=== PATIENT | male | born 1945 | race Caucasian/White ===

== ENCOUNTER 2020-05-19 09:32 | Inpatient (IN) | payer OTHER, MEDICARE ==
[~2020-05-19] VITALS: Ht 182.9 cm; Wt 84.0 kg
[~2020-05-19 09:32] MED LIST: ASPIRIN325 MG PO; LIPITOR80 MG PO; NIFEDIPINE30 MG PO; PRILOSEC20 MG/CAP PO; PROCARDIA10 MG PO; PROTONIX40 MG PO
--- NOTE | 2020-05-19 09:34 | NUR ---
PT TO ROOM VIA WC
--- NOTE | 2020-05-19 09:45 | NUR ---
PT ASSESSED. CHANGED TO GOWN. MONITORS IN PLACE. PT AO X 3. COMPLAINS OF CHEST PAIN WORSE WITH MOVEMENT. ABDOMINAL DISTENSION PRESENT PER PATIENT, HISTORY OF HERNIA. PT DENIES NAUSEA, DIAPHORESIS OR PAIN RADIATION.
[2020-05-19 10:08] LABS: HEMATOCRIT 39.9 % (39.0-50.0); IMMATURE GRANULOCYTES 0.4 % (0.0-5.0); MEAN CORPUSCULAR HGB 29.9 pG CALC (26.0-32.0); MEAN CORPUSCULAR HGB CONC 30.1 g/dL CAL (32.0-36.0); NEUT# 4.88 thou/uL (1.82-7.42); RED BLOOD COUNT 4.01 mill/uL (4.70-6.10); RED CELL DISTRI WIDTH 13.3 % (11.5-15.5)
[2020-05-19 10:10] LABS: URINE BLOOD DIPSTICK NEGATIVE (NEGATIVE); URINE GLUCOSE - DIPSTICK NEGATIVE (NEGATIVE); URINE KETONE TRACE mg/dL (NEGATIVE); URINE LEUK ESTERASE NEGATIVE (NEGATIVE); URINE NITRITE - DIPSTICK NEGATIVE (Negative); URINE PROTEIN - DIPSTICK 30 mg/dL (NEG-TRACE); URINE SPECIFIC GRAVITY >=1.030
[2020-05-19 10:14] LABS: MEAN CELL VOLUME 99.5 fL CALC (80.0-100.0); URINE BILIRUBIN - DIPSTICK MODERATE (NEGATIVE); URINE COLOR DK. YELLOW; URINE EPITHELIAL CELLS FEW EPI/hpf (0-FEW); URINE MUCUS MODERATE hpf (NONE-FEW)
[2020-05-19 10:21] LABS: ALBUMIN 3.7 g/dL (3.2-5.0); TOTAL PROTEIN 7.5 g/dL (6.3-8.2)
[2020-05-19] MEDS ORDERED: ASPIRIN81 MG PO (10:23)
[2020-05-19] MEDS ORDERED: PANTOPRAZOLE SO40 M1 PO (10:23)
[2020-05-19] MEDS ORDERED: CLOPIDOGREL75 MG PO (10:24)
[2020-05-19] MEDS ORDERED: B121000 MCG PO (10:24)
[2020-05-19] MEDS ORDERED: FOLIC ACID1 MG PO (10:25)
[2020-05-19] MEDS ORDERED: ATORVASTATIN CA80 MG PO (10:25)
[2020-05-19] MEDS ORDERED: METOPROL TAR25 MG PO (10:26)
[2020-05-19] MEDS ORDERED: POT CHLORIDE10 ME5 PO (10:26)
[2020-05-19 10:27] LABS: BILIRUBIN, TOTAL 1.3 mg/dL (0.0-1.4); CREATININE 2.1 mg/dL (0.7-1.3)
[2020-05-19] MEDS ORDERED: FERR SULFATE325 MG PO (10:27)
--- NOTE | 2020-05-19 10:45 | NUR ---
PT RESTING ON STRETCHER AWAITING RESULTS
--- NOTE | 2020-05-19 11:26 | NUR ---
PT MEDICATED AND IV FLUIDS STARTED
[2020-05-19 11:37] LABS: C-REACTIVE PROTEIN 6.2 mg/dL (0-0.9)
--- NOTE | 2020-05-19 12:35 | NUR ---
REPORT CALLED TO JACKSON RAWLS. MED SURG
--- NOTE | 2020-05-19 12:40 | NUR ---
PT TRANSPORTED VIA STRETCHER TELEMETRY IN PLACE TO [facility]
--- NOTE | 2020-05-19 12:50 | NUR ---
PT RECEIEVED FROM THE ED. REPORT FROM FREDY RAWLS. PT ARRIVED ON A STRETCH BUT SELF AMBULATED TO THE BED WITH NO DIFFICULTIES. V/S ASSESSED, PT INSTRUCTED TO CALL SYSTEM, LIGHTS BED AND IV. URINAL BEDSIDE. INSTRUCCTED TO CALL PRIOR TO AMBULATING. PT ASSESSMENT COMPLETE. PT ON 2 LITERS OF O2 NC. PT ON NL @100 PER HR. PT GIVE MEAL. PT VEBALIZED UNDERSTANDING OF INSTRUCTIONS. CALL BLANKENSHIP WITHIN REACH. WILL CONTINUE TO OBSERVE.
[2020-05-19 13:00] VITALS: BP 134/65
--- NOTE | 2020-05-19 13:34 | NUR ---
PT RECEIEVED FROM THE ED. REPORT FROM FREDY RAWLS. PT ARRIVED ON A STRETCH BUT SELF AMBULATED TO THE BED WITH NO DIFFICULTIES. V/S ASSESSED, PT INSTRUCTED TO CASLL SYSTEM, LIGHTS BED AND IV. URINAL BEDSIDE. INSTRUCCTED TO CALL PRIOR TO AMBULATING. PT ASSESSMENT COMPLETE. PT ON 2 LITERS OF O2 NC. PT ON NL @100 PER HR. PT GIVE MEAL. PT VEBALIZED UNDERSTANDING OF INSTRUCTIONS. CALL BLANKENSHIP WITHIN REACH. WILL CONTINUE TO OBSERVE.
[2020-05-19 15:48] VITALS: BP 127/62
--- NOTE | 2020-05-19 18:26 | NUR ---
PTS , JANET GUERRERO [phone] WOULD LIKE RN TO REPORT ANY CHANGE IN CONDITION.
[2020-05-19 19:20] VITALS: BP 135/67
[2020-05-20] VITALS (7 sets, daily range): BP systolic 115–155; BP diastolic 53–75
[2020-05-20 05:44] LABS: HEMATOCRIT 38.5 % (39.0-50.0); HEMOGLOBIN 11.4 g/dl (14.0-18.0); IMMATURE GRANULOCYTES 0.4 % (0.0-5.0); MEAN CORPUSCULAR HGB 29.3 pG CALC (26.0-32.0); MEAN CORPUSCULAR HGB CONC 29.6 g/dL CAL (32.0-36.0); NEUT# 4.66 thou/uL (1.82-7.42); RED BLOOD COUNT 3.89 mill/uL (4.70-6.10); RED CELL DISTRI WIDTH 13.4 % (11.5-15.5)
[2020-05-20 06:18] LABS: ALBUMIN 3.1 g/dL (3.2-5.0); BILIRUBIN, TOTAL 1.2 mg/dL (0.0-1.4); CREATININE 1.7 mg/dL (0.7-1.3); MAGNESIUM 1.7 mg/dL (1.6-2.3); POTASSIUM 4.6 mmol/l (3.5-5.1); TOTAL PROTEIN 6.2 g/dL (6.3-8.2)
[2020-05-20 06:20] LABS: CHOLESTEROL HDL RATIO 3.7 (<4.4 (CALC))
--- NOTE | 2020-05-20 06:46 | NUR ---
PT IN BED WITH EYES CLOSED. VERY PLEASSANT THROUGHOUT THE NIGH. PT IS ABLE TO VERBALIZE NEEDS. COMPLAINED OF PAIN AT 5 ON SCALE OF 1-10 WITH 10 GREATEST TO ABDOMEN. ABDOMEN IS DISTENDED AND FIRM TO TOUCH AND TENDER TO TOUCH. BOWEL SOUNDS ARE HYPOACTIVE IN ALL QUADRANTS. PT STATED THAT HE HAD BM ON 05/18/20. PT IS NPO AT THIS TIME FOR ULTRASOUND OF ABDOMEN. PT AWARE OF PROCEDURE TO BE DONE THIS AM. PT RESPIRATIONS ARE EVEN AND NON LABORED AND DENIES RESPIRATORY DISTRESS. IV SITE IS INTACT AND NO S/S OF INFITRATION/INFECTION. PT HAS NS 0.9% RUNNING AT 100ML/HR AND TOLERATING WELL. DECLINED PAIN MANAGEMNT FOR ABDOMINAL DISCOMFORT. cALL LIGHT IS WITHIN REACH AND BED IN LOWEST POSITION.
--- NOTE | 2020-05-20 07:15 | NUR ---
REPORT RECEIVED FROM CURLY PARISI.
--- NOTE | 2020-05-20 07:50 | NUR ---
PT RESTING IN SEMI FOWLERS POSITION,A&O X3;VS OBTAINED AND ASSESSMENT COMPLETED;PT DENIES ABDOMINAL PAIN BUT REPORTS "DISCOMFORT", PAIN SCALE AND REPORTING EDUCATED;RESPIRATIONS SHALLOW ON O2 @ 2L VIA, PT TAKES OFF O2 AT TIMES, NON-PRODUCTIVE COUGH;ABDOMEN DISTENDED/FIRM ON PALPATION AND HYPOACTIVE IN ALL 4 QUADRANTS;STRONG PEDAL PULSES;SKIN INTACT;TELE MONITORING IN PLACE;#20G TO LAC INFUSING NS @ 75ML/HR,SITE APPEARS HEALTHY;IT WAS NOTICIED ON MORNING LABS THAT PT GLUCOSE WAS 48, PT MEDICATED WITH D10 AT THIS TIME PER ORDER;PT REMAINS IN AIR/CONTACT PRECAUTIONS UNTIL NASAL PCR SWAB RESULTS;PT DENIES ANY ADDITIONAL NEEDS AT THIS TIME AND IS ENCOURAGED TO CALL FOR ASSISTANCE IF NEEDED;FALL PRECAUTIONS IN PLACE WITH BED IN THE LOWEST POSITION AND CALL LIGHT IN REACH;WILL CONTINUE TO MONITOR
--- NOTE | 2020-05-20 07:52 | NUR ---
LUIS COLLAZO: REVEIEWING PT LABS THIS AM ANO NOTED BLOOD SUGAR 48. PT IS ABLE TO VERBALIZE NEEDS. DR. AGARWAL CALLED AND NEW ORDER FOR D50 X 1. FAXED ORDER TO [facility] AND AWAITNG MEDICATION TO BE INSERTED FOR ADMINISTRATION. PT STATED THAT HE WOULD LIKE TO SPEAK WITH MD REGARDING GOING HOME. EXPLAINED TO PT REGARDING UPCOMING EXAM AND AWAITING RESULTS AND HE STATED HE UNDERSTOOD. RESPIRATION EVEN AND NON LABORED AND SHALLOW BREATHING NOTED AT TIMES. MILD NONPRODUCTIVE COUGH NOTED THIS AM. HOB ELEVATED. CALL LIGHT WITHIN REACH. WILL CONTINUE TO OBSERVE
--- NOTE | 2020-05-20 09:00 | NUR ---
GLUCOSE RE-CHECK 74, NOTIFIED AND NEW ORDERS RECEIVED.
--- NOTE | 2020-05-20 09:05 | NUR ---
PT TRANSPORTED TO [facility] IN STABLE CONDITION VIA WHEELCHAIR ACCOMPANIED BY WRITTER.
--- NOTE | 2020-05-20 09:35 | NUR ---
PT RETURNED BACK TO MED/SURG ROOM 290 IN STABLE CONDITION VIA WHEELCHAIR.
--- NOTE | 2020-05-20 12:15 | NUR ---
PT RESTING AT BEDSIDE EATING LUNCH;RESPIRATIONS EVEN AND UNLABORED ON RA;PT DENIES ANY CURRENT PAIN OR DISCOMFORTS;TELE MONITORING IN PLACE;IV SITE PATENT INFUSING D5 NS @ 75ML/HR WITH EASE;ASSESSMENT REMAINS UNCHANGED AT THIS TIME;ENCOURAGED TO CALL FOR ASSISTANCE IF NEEDED;FALL PRECAUTIONS IN PLACE WITH CALL LIGHT IN REACH;WILL CONTINUE TO MONITOR
--- NOTE | 2020-05-20 16:40 | NUR ---
PT RESTING IN SEMI FOWLERS POSITION;RESPIRATIONS EVEN AND UNLABORED ON RA;PT DENIES ANY CURRENT PAIN OR DISCOMFORTS;TELE MONITORING IN PLACE;IV SITE PATENT INFUSING FLUIDS PER ORDER;SHOWER SET UP PROVIDED AND LINENS CHANGED AT THIS TIME;PT DENIES ANY ADDITIONAL NEEDS AND IS ENCOURAGED TO CALL FOR ASSISTANCE IF NEEDED;CALL LIGHT IN REACH;WILL CONTINUE TO MONITOR
--- NOTE | 2020-05-20 19:10 | NUR ---
REPORT FROM DEBBIE CARRERA. PT NOTED RESTING IN BED. NO APPARENT DISTRESS NOTED. IV SITE APPEARS HEALTHY. PT TOLERATING WELL. PT DENIES ANY PAIN OR DISCOMFORT. NO APPARENT RESPIRATORY DISTRESS NOTED.. RADIAL DRILL OPERATOR IN PLACE. DISCUSSED POC. PT VERBALIZED UNDERSTANDING. CALL LIGHT WITHIN REACH. WILL CONTINUE TO MONITOR.
--- NOTE | 2020-05-20 21:31 | NUR ---
PT MEDICATED ORDERED. NO APPARENT DISTRESS NOTED. PT C/O ABD PAIN, MEDICATED WITH PRN APAP AT THIS TIME, PT REFUSING MORPHINE. NO OTHER WANTS OR NEEDS. CALL LIGHT WITHIN REACH. WILL CONTINUE TO MONITOR.
[2020-05-21] VITALS (7 sets, daily range): BP systolic 125–149; BP diastolic 64–70
--- NOTE | 2020-05-21 00:32 | NUR ---
PT RESTING IN BED. NO APPARENT DISTRESS NOTED. O2 VIA NC @ 2L/M. VSS. PT DENIES ANY OTHER WANTS OR NEEDS. PT STATES HE GOT UP TO USE BATHROOM X2. IV SITE APPEARS HEALTHY WITH IVF INFUSING. CALL LIGHT WITHIN REACH. WILL CONTIUE TO MONITOR.
--- NOTE | 2020-05-21 03:55 | NUR ---
PT RESTING IN BED. NO APPARENT DISTRESS NOTED. ASSISTANT UNIT FORESTER IN PLACE. PT DENIES ANY PAIN OR DISCOMFORT AT THIS TIME. VSS. CALL LIGHT WITHIN REACH. WILL CONTINUE TO MONITOR.
--- NOTE | 2020-05-21 07:15 | NUR ---
REPORT RECEIVED FROM DEBI CUELLAR.
--- NOTE | 2020-05-21 08:25 | NUR ---
PT RESTING IN SEMI FOWLERS POSITION,A&O X3;VS OBTAINED AND ASSESSMENT COMPLETED,O2 SATS INITIALLY IN THE LOW 80'S ON RA, OXYGEN APPLIED AT 3L AND O2 SATS JAY TO LOW 90'S;PT HAS BEEN INSTRUCTED MULTIPLE TIMES ABOUT LEAVING OXYGEN ON BUT HAS BEEN NON-COMPLIANT,MD NOTIFIED;RESPIRATIONS SHALLOW ON O2 @ 3L VIA,NON-PRODUCTIVE COUGH NOTED;ABDOMEN DISTENDED/FIRM ON PALPATION AND HYPOACTIVE IN ALL 4 QUADRANTS;STRONG PEDAL PULSES;SKIN INTACT;TELE MONITORING IN PLACE;#22G TO LFA INFUSING D5 NS @ 75ML/HR,SITE APPEARS HEALTHY;PT REPORTS ABDOMINAL PAIN BUT REFUSES THE NEED FOR PAIN MEDICATION,PAIN SCALE AND REPORTING EDUCATED;PT DENIES ANY ADDITIONAL NEEDS AT THIS TIME;PT REMAINS IN AIR/CONTACT PRECAUTIONS DUE TO COVID19 DX;ENCOURAGED TO CALL FOR ASSISTANCE IF NEEDED;FALL PRECAUTIONS IN PLACE WITH CALL LIGHT IN REACH;WILL CONTINUE TO MONITOR
--- NOTE | 2020-05-21 08:30 | NUR ---
AT BEDSIDE DISCUSSING POC.
--- NOTE | 2020-05-21 09:50 | NUR ---
PT TRANSPORTED TO [facility] AT THIS TIME IN STABLE CONDITION VIA WHEELCHAIR ACCOMPANIED BY HERBERTH OLIVER.
--- NOTE | 2020-05-21 10:04 | NUR ---
PT RETURNED TO MED/SURG ROOM 290 IN STABLE CONDITION VIA WHEELCHAIR ACCOMPANIED BY HERBERTH OLIVER.
--- NOTE | 2020-05-21 12:40 | NUR ---
PT RESTING AT BEDSIDE EATING LUNCH;RESPIRATIONS EVEN AND UNLABORED ON O2 @ 3L VIA NC;PT DENIES ANY CURRENT PAIN OR DISCOMFORTS;TELE MONITORING IN PLACE;IV FLUIDS INFUSING WITH EASE;ENCOURAGED TO CALL FOR ASSISTANCE IF NEEDED;CALL LIGHT IN REACH;WILL CONTINUE TO MONITOR
--- NOTE | 2020-05-21 15:25 | NUR ---
PT RESTING IN SEMI FOWLWES POSITION;RESPIRATIONS EVEN AND UNLABORED ON O2 @ 3L VIA NC, O2 SATS @ 100%. OXYGEN DECREASED AT THIS TIME TO 2L VIA NC;PT DENIES ANY CURRENT PAIN OR NEEDS;IV FLUIDS CONTINUE TO INFUSE TO LFA WITH EASE,ABX STARTED AT THIS TIME;TELE MONITORING IN PLACE;PT ENCOURAGED TO CALL FOR ASSISTANCE IF NEEDED;CALL LIGHT IN REACH;WILL CONTINUE TO MONITOR
--- NOTE | 2020-05-21 16:00 | NUR ---
PT O2 SATS 92% ON O2 @ 2L VIA NC, RESPIRATIONS EVEN AND UNLABORED;PT DENIES ANY CURRENT PAIN OR NEEDS;WILL CONTINUE TO MONITOR
--- NOTE | 2020-05-21 19:02 | NUR ---
REPORT FROM DEBBIE CARRERA. PT NOTED RESTING IN BED. NO APPARENT DISTRESS NOTED. IV SITE APPEARS HEALTHY. PT TOLERATING WELL. PT DENIES ANY PAIN OR DISCOMFORT. NO APPARENT RESPIRATORY DISTRESS NOTED. 02 @ 2L/M VIA NC. COMMUNICATIONS SUPERVISOR IN PLACE. DISCUSSED POC. PT VERBALIZED UNDERSTANDING. CALL LIGHT WITHIN REACH. WILL CONTINUE TO MONITOR.
--- NOTE | 2020-05-21 21:25 | NUR ---
PT MEDICATED ORDERED. ASSESSMENT COMPLETE. PT DENIES ANY PAIN OR DISCOMFORT. PT MILDLY AGGITATED AND INSISTANT THAT HE IS GOING HOME TOMORROW, ORDER ENTRY CLERK ATTEMPTED TO EDUCATE AT THIS TIME, PT GOT MORE AGGITATED AND IS NOW REFUSING TO COMMUNICATE WITH ORDER ENTRY CLERK. NO APPARENT DISTRESS NOTED. 02 @ 2L/M VIA MI. CALL LIGHT WITHIN REACH. WILL CONTINUE TO MONITOR.
--- NOTE | 2020-05-21 23:48 | NUR ---
PT FOUND TO HAVE O2 OFF. CURRENT O2 SATS 87% ON RA. NO APPARENT DISTRESS NOTED. O2 REAPPLIED AFTER SEVERAL MINUTES O2 SATS ON UP TO 89-90%. O2 INCREASED TO 3L/M VIA NC AT THIS TIME. PT STILL DISGRUNTLED WITH STAFF. CALL LIGHT WITHIN REACH. WILL CONTINUE TO MONITOR.
[2020-05-22 04:17] VITALS: BP 137/69
--- NOTE | 2020-05-22 04:17 | NUR ---
PT OOB BED DRESSED IN HOME CLOTHES REQUESTING WHEN DOCTOR WILL BE IN TO SEE HIM. DISCUSSED WITH PT THE TIMES PHYSICIAN TYPICALLY MAKE ROUNDS. PT VERBALIZED UNDERSTANDING. O2 VIA NC @ 3L/M SATS CURRENTLY 95%. VSS. PT DENIES ANY PAIN OR DISCOMFORT. CALL LIGHT WITHIN REACH. WILL CONTINUE TO MONITOR.
[2020-05-22 05:47] LABS: HEMATOCRIT 38.5 % (39.0-50.0); HEMOGLOBIN 11.6 g/dl (14.0-18.0); MEAN CELL VOLUME 98.7 fL CALC (80.0-100.0); MEAN CORPUSCULAR HGB 29.7 pG CALC (26.0-32.0); MEAN CORPUSCULAR HGB CONC 30.1 g/dL CAL (32.0-36.0); RED BLOOD COUNT 3.9 mill/uL (4.70-6.10); RED CELL DISTRI WIDTH 13.5 % (11.5-15.5)
[2020-05-22 06:17] LABS: CREATININE 1.5 mg/dL (0.7-1.3); MAGNESIUM 1.7 mg/dL (1.6-2.3); POTASSIUM 3.9 mmol/l (3.5-5.1)
[2020-05-22 09:04] VITALS: BP 133/67
--- NOTE | 2020-05-22 09:04 | NUR ---
PT SITTING IN BED. A&O X3. PT REPORTS THAT HE WANTS TO GO HOME TODAY. PT COOPERATIVE BUT SLIGHTLY AGITATED. PT DENIES ANY PAIN AT THIS TIME. O2 VIA NC @3L IN PLACE. NO OTHER NEEDS AT THIS TIME. ASSESSMENT COMPLETED. ISOLATION PRECAUTIONS IN PLACE. CALL LIGHT IN REACH. CONTINUE TO MONITOR.
[2020-05-22 11:00] VITALS: BP 127/64
--- NOTE | 2020-05-22 11:30 | NUR ---
PT O2 VIA RM @84 %. O2 VIA NC REAPPLIED. O2% 93-94.
--- NOTE | 2020-05-22 13:15 | NUR ---
PT CURRENTLY OFF OF OXYGEN. DENIES ANY SOB. O2 VIA ROOM AIR FLUCTUATING BETWEEN 88-92%. LAST READING PT SUSTAINED AT 89/90%.
[2020-05-22] MEDS ORDERED: VANTIN200 M1 PO (13:25)
[2020-05-22] MEDS ORDERED: ZITHROMAX250 MG PO (13:26)
--- NOTE | 2020-05-22 15:30 | NUR ---
PT AGITATED WANTING TO LEAVE. EXPLAINED TO PT REASONING BEHIND DELAYED D/C. EXPLAINED TO PT THAT DUE TO HIS O2 SATURATION VIA ROOM AIR IT WAS BEST IF HE HAD O2 TO GO HOME WITH. PT VERBALIZED UNDERSTANDING.
[2020-05-22 16:20] VITALS: BP 128/66
--- NOTE | 2020-05-22 17:28 | NUR ---
NO UPDATES ON PTS O2. CALLED [facility], PER [facility] ROOM SERVICE FOOD SERVICE ATTENDANT NO O2 TO BE DELIVERED TO PT DUE TO PT STATING HE WANTED TO [facility]OUGH [facility]. PER ROOM SERVICE FOOD SERVICE ATTENDANT PT ENDED PHONE CALL WHEN ASKED FURTHER ABOUT HIS INSURANCE. NURSING DRAWING TRACER NOTIFIED.
--- NOTE | 2020-05-22 18:05 | NUR ---
PT AGITATED AND INSITING THAT HE WANTS TO GO HOME, THAT HIS IV NEEDED TO BE REMOVED SO HE CAN "GET OUT OF HERE". DELMAR RN NOTIFIED, PER DELMAR CALL PHYSICIAN REFINED SYRUP OPERATOR AND NOTIFY THEM.
--- NOTE | 2020-05-22 18:27 | NUR ---
DR HOOVER NOTIFIED OF PTS DECISION AND AGITATION TOWARDS BEING D/C. PER SNEHA, PRINT PRESCRIPTION SCRIPTS AND HAVE PT SIGN D/C INSTRUCTIONS.
--- NOTE | 2020-05-22 18:50 | NUR ---
PT SIGNED D/C INSTRUCTIONS, REVIEWED D/C INSTRUCTIONS AND IMPORTANCE TO CONTINUE TO MONITOR O2 % AT HOME. EXPLAINED TO PT THAT OUT PT ORDERS FOR REPEAT BLOOD WORK WERE INCLUDED IN HIS D/C INSTRUCTIONS AND THAT HE COULD HAVE THEM DONE HERE, PT STATES "OH I AM NOT COMING BACK HERE". PT AGITATED STATING "WHERE ARE MY COVID RESULTS" EXPLAINED TO THE PT THAT RESULTS WERE NOT CONFIRMED, PER PT "WELL SOMEONE TOLD ME THEY WERE GOING TO BRING THEM WITH MY DISCHARGE PAPERS" EXPLAINED TO PT THAT HE WOULD BE CALLED WITH RESULTS. TISH CARRERA AT BEDSIDE WITNESS. PT D/C CURRENTLY IN STABLE CONDITION VIA WC TO HOME ACCOMPANIED BY THIS MUSEUM SPECIALIST AND TISH CARRERA.
--- NOTE | 2020-05-22 18:55 | NUR ---
D/C INSTRUCTIONS ALSO REVIEWED AND GIVEN TO PTS SPOUSE JANET. JANET STATES "WHERE IS YOUR O2" PT AGITATED SAID " I AIN'T GOT NONE". EXPLAINED THE SITUATION TO SPOUSE, JANET AGITATED BUT VERBALIZED UNDERSTANDING. REITERATED TO BOTH PT AND SPOUSE IMPORTANCE OF MONITORING O2 LEVEL AT HOME WITH PULSE OXIMETER. PT REPEATING "I AM DONE WITH THIS PLACE LETS GO". PER JANET SHE WILL GO TO THE STORE AND OBTAIN PULSE OXIMETER. APOLOGIZED TO BOTH PT AND SPOUSE FOR SITUATION. TISH CARRERA AT SIDE TO WITNESS.
== END 2020-05-22 18:50 | disposition home or self-care (01) | DRG 193 ==
LOC: ED 09:32 → ED-I 11:10 → ED 11:33 → ED-I 11:34 → MS2 11:34
PROVIDERS: Family Medicine; Nurse Practitioner; ADMIT Internal Medicine; ATTEND Internal Medicine
DX: J18.9 Pneumonia, unspecified organism (principal); J96.01 Acute respiratory failure with hypoxia; E87.2 Acidosis; I12.9 Hypertensive chronic kidney disease with stage 1 through stage 4 chronic kidney disease, or unspecified chronic kidney disease; N18.9 Chronic kidney disease, unspecified; I25.10 Atherosclerotic heart disease of native coronary artery without angina pectoris; K21.9 Gastro-esophageal reflux disease without esophagitis; C80.1 Malignant (primary) neoplasm, unspecified; E78.5 Hyperlipidemia, unspecified; R16.0 Hepatomegaly, not elsewhere classified; K76.0 Fatty (change of) liver, not elsewhere classified; F17.200 Nicotine dependence, unspecified, uncomplicated; Z95.5 Presence of coronary angioplasty implant and graft; Z20.828 Contact with and (suspected) exposure to other viral communicable diseases
CPT/HCPCS: G0378